=== PATIENT | female | born 1975 | race Caucasian/White ===

== ENCOUNTER 2022-07-21 08:48 | Outpatient (CLI) | payer OTHER, SELFPAY ==
[2022-07-21 11:38] LABS: Hemoglobin A1C* 4.9 % (0-5.6)
[2022-07-21 13:33] LABS: Cholesterol* 179 mg/dL (90-199); Glucose* 103 mg/dL (60-115); HDL Cholesterol* 55 mg/dL (>=50); LDL Cholesterol Calculated 90 mg/dL (<100); Triglycerides* 169 mg/dL (40-149)
== END 2022-07-21 08:49 | disposition home or self-care (01) ==
PROVIDERS: Visit Provider Obstetrics & Gynecology
DX: Z01.419 Encounter for gynecological examination (general) (routine) without abnormal findings (principal); R63.5 Abnormal weight gain; E55.9 Vitamin D deficiency, unspecified; F41.9 Anxiety disorder, unspecified; Z13.6 Encounter for screening for cardiovascular disorders; Z13.1 Encounter for screening for diabetes mellitus
CPT/HCPCS: 80061; 82947; 83036; 84443

== ENCOUNTER 2022-12-13 13:31 | Outpatient (CLI) | payer OTHER, SELFPAY ==
--- NOTE | 2022-12-13 | CRLHL7_ITS ---
For Patients: As a result of the Century Cures Act, medical imaging exams and procedure reports are released immediately into your electronic medical record. You may view this report before your referring provider. If you have questions, please contact your health care provider. BILATERAL SCREENING MAMMOGRAM WITH COMPUTER-AIDED DETECTION AND TOMOSYNTHESIS TECHNIQUE: CC and MLO views were obtained. These mammographic images have been obtained using full-field digital technique. These mammographic images were interpreted with the benefit of computer-aided detection. Breast Tomosynthesis was used in this interpretation. COMPARISON FILM: 05/19/21, 02/15/20, 03/01/18. FINDINGS: There are scattered areas of fibroglandular density IMPRESSION: There is no radiographic evidence for malignancy. ASSESSMENT: BI-RADS Category 1: Negative RECOMMENDATION: Routine screening mammogram in 1 year. A lay language report of this examination will be provided to the patient. Denis Dunaway M.D. Diagnostic Radiologist [email or web address] Transcribed: 2:42 pm DW/Dictated by: Denis Dunaway MD @ 12/14/2022 12:53:00 PM (Electronically Signed)
== END 2022-12-13 13:32 | disposition home or self-care (01) ==
LOC: MAMMO 14:33
PROVIDERS: Visit Provider Obstetrics & Gynecology
DX: Z12.31 Encounter for screening mammogram for malignant neoplasm of breast (principal)
CPT/HCPCS: 77063; 77067

== ENCOUNTER 2024-02-29 11:06 | Outpatient (CLI) | payer OTHER, SELFPAY | END 2024-02-29 11:07 | disposition home or self-care (01) | PROVIDERS: Visit Provider Obstetrics & Gynecology | DX: R68.82 Decreased libido (principal); R63.5 Abnormal weight gain; N95.1 Menopausal and female climacteric states | CPT/HCPCS: 84270; 84402; 84403; 84443 ==

== ENCOUNTER 2024-03-08 08:11 | Outpatient (CLI) | payer OTHER, SELFPAY | END 2024-03-08 08:12 | disposition home or self-care (01) | LOC: NFLDREF 03-11 08:41 | PROVIDERS: Visit Provider Obstetrics & Gynecology | DX: E66.9 Obesity, unspecified (principal); R63.5 Abnormal weight gain; R68.82 Decreased libido; N95.1 Menopausal and female climacteric states; F41.9 Anxiety disorder, unspecified | CPT/HCPCS: 80053; 80061 ==

== ENCOUNTER 2025-01-15 11:47 | Outpatient (CLI) | payer BC, SELFPAY ==
[2025-01-16 22:44] LABS: HPV Source Cervix
[2025-01-21 09:25] LABS: Pap Test Digital Imaging Done
== END 2025-01-15 11:48 | disposition home or self-care (01) ==
PROVIDERS: Visit Provider Registered Nurse
DX: Z12.4 Encounter for screening for malignant neoplasm of cervix (principal)
CPT/HCPCS: 84443; 87624; 87625; 88141; 88142; 88175

== ENCOUNTER 2025-01-15 15:24 | Outpatient (CLI) | payer BC, SELFPAY ==
--- NOTE | 2025-01-15 15:40 | CRLHL7_ITS ---
For Patients: As a result of the Century Cures Act, medical imaging exams and procedure reports are released immediately into your electronic medical record. You may view this report before your referring provider. If you have questions, please contact your health care provider. INDICATION: BILATERAL SCREENING MAMMOGRAM, ASYMPTOMATIC 49 Y/O FEMALE COMPARISON: 12/13/2022, 05/19/2021, 02/15/2020 TECHNIQUE: Digital mammogram in CC and MLO projections including computer-aided detection (CAD) and tomosynthesis. BREAST COMPOSITION: There are scattered areas of fibroglandular density. FINDINGS: No suspicious findings. ASSESSMENT: BI-RADS 1 Negative RECOMMENDATION: Annual screening mammogram. A lay language report of this examination will be provided to the patient. Dictated by: Denis Dunaway MD @ 01/16/2025 10:44:41 (Electronically Signed)
== END 2025-01-15 15:25 | disposition home or self-care (01) ==
LOC: MAMMO 15:24
PROVIDERS: Visit Provider Obstetrics & Gynecology
DX: Z12.31 Encounter for screening mammogram for malignant neoplasm of breast (principal); N93.9 Abnormal uterine and vaginal bleeding, unspecified
CPT/HCPCS: 77063; 77067; 84443; 87624

== ENCOUNTER 2025-01-16 08:09 | Outpatient (CLI) | payer BC, SELFPAY ==
--- NOTE | 2025-01-16 08:15 | CRLHL7_ITS ---
For Patients: As a result of the Century Cures Act, medical imaging exams and procedure reports are released immediately into your electronic medical record. You may view this report before your referring provider. If you have questions, please contact your health care provider. INDICATION: Abnormal vaginal bleeding COMPARISON: 06/25/2016 TECHNIQUE: 2D trujillo-scale and color Doppler images were acquired of the pelvis using a transabdominal and transvaginal approach. Transvaginal imaging performed to better visualize the endometrial stripe and ovaries. FINDINGS: Uterine fibroid is present within fundal myometrium which measures 1.8 x 1.7 x 1.9 cm. Uterus measures 10.2 cm in length by 5.2 cm in AP diameter by 5.8 cm in transverse dimension. The myometrium has a coarsened and dense echotexture. The endometrial lining appears normal and measures 4.2 mm in composite thickness. The right ovary measures 3.5 x 1.7 x 3.0 cm in size and the left ovary measures 2.4 x 1.6 x 1.8 cm. The ovaries demonstrate normal arterial and venous blood flow on color Doppler analysis. There are no suspicious fluid collections within the cul-de-sac. Simple left ovarian cyst measures 1.2 x 1.1 x 1.3 cm. IMPRESSION: Endometrial thickness 4.2 millimeters. Uterine fibroid measures 1.9 cm. Dictated by Denis Dunaway MD @ 01/16/2025 12:41:01 PM (Electronically Signed)
== END 2025-01-16 08:10 | disposition home or self-care (01) ==
LOC: US 08:09
PROVIDERS: Visit Provider Registered Nurse
DX: N93.9 Abnormal uterine and vaginal bleeding, unspecified (principal); R93.89 Abnormal findings on diagnostic imaging of other specified body structures; D25.9 Leiomyoma of uterus, unspecified
CPT/HCPCS: 76830; 76856

== ENCOUNTER 2025-03-08 06:03 | Day surgery (SDC) | payer BC, SELFPAY ==
[2025-03-08] VITALS (7 sets, daily range): BP systolic 106–140; BP diastolic 68–86; PULSE 57–72; RESP 14–20; TEMP 36.3–36.4; O2SAT 90–98; BMI 29.2
[2025-03-08 06:34] LABS: Ur HCG Qualitative* Negative (Negative)
[2025-03-08] MEDS: LACTATED RINGERS 1000 ML 1,000 ML 100 ML IV (06:45)
[2025-03-08] MEDS: SODIUM CHLORIDE 0.9 % (FLUSH) 10 ML SYRINGE IVF (06:45)
[2025-03-08] MEDS: LIDOCAINE 1% MDV 20 ML INJECTION (07:40)
[2025-03-08] MEDS: SILVER NITRATE APPLICATOR 1 EACH STICK..EA. TOPICAL (07:40)
[2025-03-08] MEDS: BUPIVACAINE 0.25% 30 ML INJECTION (07:40)
--- NOTE | 2025-03-08 08:16 | W.PM.GYNPROC ---
Procedure Note Date of procedure: 03/08/25 Will [facility] bill your pro fee for this procedure?: Yes Pre-op diagnosis: 1. Abnormal uterine bleeding 2. History of endometrial ablation Post-op diagnosis: Same Procedure: 1. Hysteroscopy 2. D&C using TruClear Anesthesia: MAC and local (Paracervical block) Complications: None Surgeon: Myranda Monzon MD Estimated blood loss (mL): 10 Pathology: specimen obtained, sent to pathology (Endometrial curettings) Condition: stable Disposition: same day Findings: Severely anteverted uterus. Stenotic internal cervical os. Intrauterine synechiae. Possible small endometrial polyp, otherwise benign-appearing endometrial tissue. Procedure Description: After obtaining informed consent, the patient was taken to the operating room where she received monitored anesthesia care. She was prepared and draped in the normal sterile fashion, in the dorsal lithotomy position. An open-sided bivalve speculum was introduced into the vagina and the cervix visualized. The anterior lip of the cervix was grasped with a single-tooth tenaculum for traction. A paracervical block was then administered using a total of 20 mL of a 50/50 mixture of 0.25% Marcaine and 1% lidocaine plain. I attempted to pass a small Hegar dilator through the external cervical os, but met resistance at the internal cervical os. The external os was dilated to a #5 Hegar dilator. The 5 mm hysteroscope was then advanced into the external cervical os using sterile normal saline as distending medium. I was able to identify the position of the internal cervical os, which was very anterior. The hysteroscope was removed, and I again attempted to dilate the internal cervical os with a small Hegar dilator oriented anteriorly. Multiple attempts were made, going back and forth between dilators and the hysteroscope, and ultimately I was able to dilate the internal cervical os to a #5 Hegar dilator. Sound length was measured and found to be 7 cm. The hysteroscope was then again advanced under direct visualization through the cervix into the uterine cavity using normal sterile saline as distending medium. The uterine cavity was carefully inspected with the findings noted above. Pictures were taken for documentation purposes. The TruClear morcellator was inserted through the operating channel in the hysteroscope. The morcellator was used to remove a small suspected polyp in its entirety as well as some surrounding endometrium just within the internal cervical os. The hysteroscope was then removed. The endometrial lining was then sharply curetted, a gritty feel was felt throughout and an additional sample obtained which was likely composed of mostly blood and mucus. The tenaculum was removed. There was bleeding observed from the external aspect of the cervix posteriorly, which was not well controlled with direct pressure sponge stick nor silver nitrate. Electrocautery was used for hemostasis. All instruments were then removed. The patient tolerated the procedure well. Sponge, lap, needle, and instrument counts reported as correct x2. The patient was taken to the recovery room awake in a stable condition. She received 30 mg IV Toradol at the conclusion of the procedure.
--- NOTE | 2025-03-08 08:28 | P.ANES_ITS ---
Anesthesia Charges Start Date/Time Anesthesia Start Date: 03/08/25 Anesthesia Start Time: 07:17 Stop Date/Time Anesthesia Stop Date: 03/08/25 Anesthesia Stop Time: 08:30 Coding CPT Codes CPT Codes: ANESTH HYSTEROSCOPE/GRAPH - 32640 ([id number]) P2 - PATIENT W/MILD SYST DISEASE, QX - METEOROLOGY PROFESSOR SVC W/ MD MED DIRECTION, QK - RN WOMEN SERVICES 2-4 CNCRNT ANES PROC
--- NOTE | 2025-03-08 08:28 | W.ANESCHARGE ---
Anesthesia Charges Start Date/Time Anesthesia Start Date: 03/08/25 Anesthesia Start Time: 07:17 Stop Date/Time Anesthesia Stop Date: 03/08/25 Anesthesia Stop Time: 08:30 Coding CPT Codes CPT Codes: ANESTH HYSTEROSCOPE/GRAPH - 09749 ([id number]) P2 - PATIENT W/MILD SYST DISEASE, QX - DIVING FISHER SVC W/ MD MED DIRECTION, QK - FIRER PORTABLE BOILER 2-4 CNCRNT ANES PROC
--- NOTE | 2025-03-08 08:32 | P.ANES_ITS ---
Anesthesia Charges Start Date/Time Anesthesia Start Date: 03/08/25 Anesthesia Start Time: 07:17 Stop Date/Time Anesthesia Stop Date: 03/08/25 Anesthesia Stop Time: 08:30 Coding CPT Codes CPT Codes: ANESTH HYSTEROSCOPE/GRAPH - 39412 ([id number]) P2 - PATIENT W/MILD SYST DISEASE, QK - SHOP MECHANIC HELPER 2-4 CNCRNT ANES PROC, QX - LONG HAUL TRUCK DRIVER SVC W/ MD MED DIRECTION
--- NOTE | 2025-03-08 08:32 | W.ANESCHARGE ---
Anesthesia Charges Start Date/Time Anesthesia Start Date: 03/08/25 Anesthesia Start Time: 07:17 Stop Date/Time Anesthesia Stop Date: 03/08/25 Anesthesia Stop Time: 08:30 Coding CPT Codes CPT Codes: ANESTH HYSTEROSCOPE/GRAPH - 67924 ([id number]) P2 - PATIENT W/MILD SYST DISEASE, QK - CENTRAL SUPPLY WORKER 2-4 CNCRNT ANES PROC, QX - WELDER RAILCAR MECHANIC SVC W/ MD MED DIRECTION
[2025-03-08] MEDS: ACETAMINOPHEN 500 MG TABLET 1000 MG PO (08:56)
== END 2025-03-08 09:55 | disposition home or self-care (01) ==
PROVIDERS: PCP Physician Assistant Medical; Visit Provider Obstetrics & Gynecology
PROC: 0UDB8ZZ Extraction of Endometrium, Via Natural or Artificial Opening Endoscopic (ICD-10-PCS; CPT 58558; principal; 2025-03-08 07:15)
DX: N93.8 Other specified abnormal uterine and vaginal bleeding (principal); N88.2 Stricture and stenosis of cervix uteri
CPT/HCPCS: 58558; 00952; 81025; J2003; A9270; C1782; J0665; J1100; J1630; J1885; J2405; J2704; J3010; J3490; J7120

== ENCOUNTER 2025-03-22 08:39 | Outpatient (CLI) | payer BC, SELFPAY | END 2025-03-22 08:40 | disposition home or self-care (01) | LOC: NFLDREF 03-27 15:03 | PROVIDERS: PCP Physician Assistant Medical; Visit Provider Obstetrics & Gynecology | DX: R39.89 Other symptoms and signs involving the genitourinary system (principal) | CPT/HCPCS: 87086 ==